=== PATIENT | male | born 1960 | race Caucasian/White ===

== ENCOUNTER → 2023-03-26 09:35 | Outpatient (BNVA) | payer OTHER, MEDICARE, SELFPAY | PROVIDERS: Visit Provider Family Medicine Adult Medicine | DX: R03.0 Elevated blood-pressure reading, without diagnosis of hypertension (principal); Z87.898 Personal history of other specified conditions; Z98.890 Other specified postprocedural states | CPT/HCPCS: 80053; 80061; 83036; 84443; 85025; G0103 ==

== ENCOUNTER → 2023-04-05 09:50 | Outpatient (BNVA) | payer OTHER, MEDICARE, SELFPAY | PROVIDERS: PCP Family Medicine Adult Medicine; Visit Provider Family Medicine Adult Medicine | DX: Z71.1 Person with feared health complaint in whom no diagnosis is made (principal) | CPT/HCPCS: 84403 ==

== ENCOUNTER → 2023-04-26 13:37 | Outpatient (BNVA) | payer MEDICARE, SELFPAY | PROVIDERS: PCP Family Medicine Adult Medicine; Referring Provider Family Medicine Adult Medicine; Visit Provider Internal Medicine | DX: R07.9 Chest pain, unspecified (principal); R00.1 Bradycardia, unspecified; I45.9 Conduction disorder, unspecified; Z98.890 Other specified postprocedural states; Z86.79 Personal history of other diseases of the circulatory system; Z87.891 Personal history of nicotine dependence | CPT/HCPCS: 93005; 99204 ==

== ENCOUNTER 2023-04-29 13:50 | Outpatient (CLI) | payer MEDICARE, SELFPAY ==
--- NOTE | 2023-04-29 14:30 | USCV_ITS ---
Kevin Montalvo Age: 63 Gender: M : 1960 Exam Date: 04/29/2023 13:46 Ordering Phys: Adair Hidalgo M.D ([email or web address]) Technologist: CHRISTINE [place]am [place] [facility] [place]: MVP REPAIR, EVAL FOR MR BP: 110 / 72 HR: 74 Rhythm: Sinus Technical Quality: Adequate MEASUREMENTS (Male / Female) Normal Values 2D ECHO LV Diastolic Diameter PLAX 5.2 cm 4.2 - 5.9 / 3.9 - 5.3 cm IVS Diastolic Thickness 1.3 cm 0.6 - 1.0 / 0.6 - 0.9 cm IVS Systolic Thickness 1.8 cm LVPW Diastolic Thickness 1.7 cm 0.6 - 1.0 / 0.6 - 0.9 cm LVPW Systolic Thickness 2.9 cm LVOT Diameter 2.0 cm LV Ejection Fraction 2D Teich 76.8 % LV Ejection Fraction MOD 2C 60.9 % LV Ejection Fraction 2C AL 0.0 % LA Diameter 3.7 cm RA Systolic Volume 4C AL 49.9 ml RA Systolic Volume 4C MOD 48.8 ml Aorta at Sinotubular Diameter 2.8 cm IVC Diameter 1.6 cm M-MODE LA Ao Ratio MM 1.3 AV Cusp Separation MM 1.9 cm DOPPLER AV Peak Velocity 203.8 cm/s LVOT Peak Velocity 151.0 cm/s AV Area Cont Eq vti 2.5 cm squared AV Area Cont Eq pk 2.3 cm squared MV Peak Velocity 179.0 cm/s MV Area PHT 2.0 cm squared Mitral E to A Ratio 1.4 TR Peak Velocity 232.0 cm/s TR Peak Gradient 21.5 mmHg TR Mean Velocity 183.0 cm/s TR Mean Gradient 14.4 mmHg TR Velocity Time Integral 66.6 cm TV Peak E Velocity 52.0 cm/s Right Atrial Pressure 3.0 mmHg Pulmonary Artery Systolic Pressu 24.5 mmHg PV Peak Velocity 125.0 cm/s RV Ejection Time 0.3 s FINDINGS Left Ventricle Left ventricle is normal in size. LV systolic function is normal with EF of 55 to 60%. No regional wall motion abnormalities are seen. Right Ventricle Normal in size and function Right Atrium Normal in size Left Atrium Dilated Mitral Valve Mitral valve annuloplasty ring seen. Mild mitral stenosis with mean gradient across mitral valve of 5.7 mmHg. Mild mitral regurgitation. Aortic Valve Structurally normal aortic valve. No significant aortic stenosis or regurgitation Tricuspid Valve Mild tricuspid regurgitation. Pulmonary artery systolic pressure is normal. Pulmonic Valve Mild pulmonic regurgitation Pericardium Normal Aorta Normal in size IVC Appears to be normal CONCLUSIONS LV systolic function is normal with EF of 55 to 60%. Left atrial dilation. Mitral valve annuloplasty ring is seen. Mild mitral stenosis. Mild mitral regurgitation. Mild tricuspid regurgitation Mild pulmonic regurgitation. No comparison studies are available Adair Hidalgo MD (Electronically Signed) Final Date: 04 May 2023 12:54 S
== END 2023-04-29 13:51 | disposition home or self-care (01) ==
LOC: RAD 13:50
PROVIDERS: PCP Family Medicine Adult Medicine; Visit Provider Internal Medicine
DX: I08.1 Rheumatic disorders of both mitral and tricuspid valves (principal)
CPT/HCPCS: 93306

== ENCOUNTER 2023-07-04 21:53 | Emergency (ER) | payer MEDICARE, SELFPAY ==
[2023-07-04 22:14] VITALS: BP 143/83; PULSE 86; TEMP 36.4; O2SAT 95; BMI 32.4
--- NOTE | 2023-07-04 22:58 | W.ED.SKABFB ---
HPI - Skin/Abscess/Foreign Bdy General: Chief complaint: Skin/Abscess/Foreign Body Stated complaint: maybe a bite on back of leg Time Seen by Provider: 07/04/23 22:46 History of Present Illness: 63-year-old male patient comes in today with complaints of a area of redness to his left inguinal area for the past 2 days. Patient reports mainly itching. Patient also reported some chills and tachycardia. Review of Systems General: Reports: 10 or more systems reviewed and unremarkable except in HPI and below PFSH ED PFSH: Medical History Former smoker Essential tremor Osteoarthritis Benign prostatic hyperplasia Concern about sexual dysfunction in male without diagnosis BMI 30.0-30.9,adult History of prediabetes Elevated blood pressure reading in office without diagnosis of hypertension History of rheumatic fever Seborrheic keratoses Hypertrophic condition of skin left foot Surgical History History of mitral valve repair Mitral valve prolapse with valve repair History of right knee joint replacement Family History Father Lung cancer Diabetes Mother Diabetes Hypertension Brother Diabetes Social History Smoking and tobacco/nicotine status: former use of tobacco/nicotine Quit status (tobacco/nicotine): has quit using Alcohol intake: current Alcohol intake frequency: few times a week Alcohol type: beer and hard liquor Substance/Drug Use: former Physical Exam Const: COMMON NORMALS: alert Neck/C-Spine: COMMON NORMALS: full ROM Resp: COMMON NORMALS: normal respiratory effort and clear to auscultation bilaterally AUSCULTATION: clear to auscultation bilaterally Cardio: COMMON NORMALS: regular rate and regular rhythm RATE: regular rate RHYTHM: regular rhythm Extremity: NARRATIVE EXTREMITY EXAM: Area of redness to the left inner upper thigh with a centralized punctate lesion. 3 cm area of induration surrounding lesion, 15 cm of erythema. Neuro: SENSORIUM/ORIENTATION: Yes alert Skin: NARRATIVE SKIN EXAM: Redness left upper thigh Course Vital Signs: Vital signs: Vital Signs Temperature 97.6 F 07/04/23 22:14 Pulse Rate 86 07/04/23 22:14 Blood Pressure 143/83 07/04/23 22:14 Pulse Oximetry 95 07/04/23 22:14 Oxygen Delivery Me thod Room Air 07/04/23 22:14 MDM - Skin/Abscess/Foreign Bdy Medicial Decision Making 63-year-old male patient comes in today for complaints of redness with itching to the left upper thigh. On exam we note a punctate lesion with surrounding erythema induration and redness. Patient appears nontoxic. Respirations are even lungs are clear to auscultation. Abdomen soft nontender. Differential diagnosis includes but not limited to cellulitis, localized reaction to insect bite, abscess. No sign of abscess is noted at this time. I believe at this time patient probably has an insect bite with surrounding cellulitis. Patient reports understanding of care plan need for follow-up or return to the ER. No radiology studies performed this visit Discharge Plan Discharge Patient Disposition: Home Clinical Impression: Insect bite Qualifiers: Encounter type: initial encounter Site of insect bite: thigh Laterality: left Qualified Code(s): S70.362A - Insect bite (nonvenomous), left thigh, initial encounter Cellulitis Qualifiers: Site of cellulitis: extremity Site of cellulitis of extremity: lower extremity Laterality: left Qualified Code(s): L03.116 - Cellulitis of left lower limb Condition: Stable Prescriptions: New doxycycline hyclate 100 mg capsule 100 mg PO BID 10 Days Qty: 20 0RF prednisone 20 mg tablet 20 mg PO BID 5 Days Qty: 10 0RF No Action clotrimazole-betamethasone 1-0.05 % cream 1 applic topical BID 14 Days Qty: 45 1RF Discharge Orders: Discharge ED (Routine); Ordered 07/04/23 Ordered By: Naun Burch Referrals: Shubham Szymanski MD [Primary Care Provider] - Discharge Diet: Usual diet Discharge Activity: Increase activity as tolerated Patient Instructions: Cellulitis (ED) Activity Restrictions/Additional Instructions: You may use Benadryl to help with itching. Take prednisone daily twice a day for 5 days. Take oral antibiotic for secondary cellulitis. Follow-up with primary care for further instructions. Return to ED for new concerns. Coding Level of Care Code ED Hepatology Physician for Darrick Regalado
[2023-07-04] MEDS: dexamethasone 10 mg/mL INJ IM (23:02)
[2023-07-04] MEDS: doxycycline 100 mg Tablet PO (23:02)
[2023-07-04 23:06] VITALS: BP 138/72; PULSE 82; RESP 18; O2SAT 97
== END 2023-07-04 23:07 | disposition home or self-care (01) ==
PROVIDERS: Emergency Provider Nurse Practitioner Family; PCP Family Medicine Adult Medicine
DX: S70.362A Insect bite (nonvenomous), left thigh, initial encounter (principal); W57.XXXA Bitten or stung by nonvenomous insect and other nonvenomous arthropods, initial encounter; L03.116 Cellulitis of left lower limb; Z87.891 Personal history of nicotine dependence
CPT/HCPCS: 96372; 99284; J1100

== ENCOUNTER → 2023-11-11 09:17 | Outpatient (BNVA) | payer MEDICARE, SELFPAY | PROVIDERS: PCP Family Medicine Adult Medicine; Visit Provider Nurse Practitioner Family | DX: I34.89 Other nonrheumatic mitral valve disorders (principal); Z98.890 Other specified postprocedural states | CPT/HCPCS: 99213 ==

== ENCOUNTER → 2024-02-21 13:46 | Outpatient (BNVA) | payer MEDICARE, SELFPAY | PROVIDERS: PCP Family Medicine Adult Medicine; Visit Provider Internal Medicine | DX: I48.91 Unspecified atrial fibrillation (principal); Z98.890 Other specified postprocedural states; Z87.891 Personal history of nicotine dependence; Z79.01 Long term (current) use of anticoagulants | CPT/HCPCS: 99214 ==

== ENCOUNTER → 2024-04-24 12:48 | Outpatient (BNVA) | payer MEDICARE, SELFPAY | PROVIDERS: PCP Family Medicine Adult Medicine; Visit Provider Internal Medicine | DX: I48.91 Unspecified atrial fibrillation (principal); Z98.890 Other specified postprocedural states; Z87.891 Personal history of nicotine dependence | CPT/HCPCS: 99214 ==

== ENCOUNTER → 2024-04-27 10:17 | Outpatient (BNVA) | payer MEDICARE, SELFPAY | PROVIDERS: PCP Family Medicine; Visit Provider Family Medicine | DX: G25.0 Essential tremor (principal); Z12.5 Encounter for screening for malignant neoplasm of prostate; I48.91 Unspecified atrial fibrillation; R73.03 Prediabetes | CPT/HCPCS: 80053; 80061; 83036; 84439; 84443; 85025 ==

== ENCOUNTER 2024-05-30 07:36 | Outpatient (CLI) | payer MEDICARE, SELFPAY ==
--- NOTE | 2024-05-30 07:45 | USCV_ITS ---
Kevin Montalvo Age: 64 Gender: M : 1960 Exam Date: 05/30/2024 07:47 Ordering Phys: Adair Hidalgo M.D ([email or web address]) Technologist: Exam Location: [facility] [place] Indication: mitral repair BP: 124 / 79 HR: 58 Rhythm: Sinus Technical Quality: Adequate MEASUREMENTS (Male / Female) Normal Values 2D ECHO LV Diastolic Diameter PLAX 5.2 cm 4.2 - 5.9 / 3.9 - 5.3 cm IVS Diastolic Thickness 1.3 cm 0.6 - 1.0 / 0.6 - 0.9 cm IVS Systolic Thickness 1.7 cm LVPW Diastolic Thickness 1.6 cm 0.6 - 1.0 / 0.6 - 0.9 cm LVPW Systolic Thickness 1.8 cm LVOT Diameter 2.2 cm LV Ejection Fraction 2D Teich 61.4 % LV Ejection Fraction MOD 4C 68.4 % LV Ejection Fraction MOD 2C 66.3 % LV Ejection Fraction 2C AL 66.8 % LA Diameter 4.7 cm RA Systolic Volume 4C AL 56.1 ml RA Systolic Volume 4C MOD 52.5 ml Aorta at Sinotubular Diameter 3.0 cm IVC Diameter 2.5 cm M-MODE LA Ao Ratio MM 1.7 AV Cusp Separation MM 2.7 cm DOPPLER AV Peak Velocity 163.0 cm/s LVOT Peak Velocity 114.0 cm/s AV Area Cont Eq vti 2.7 cm squared AV Area Cont Eq pk 2.6 cm squared MV Peak Velocity 204.0 cm/s MV Area PHT 2.1 cm squared Mitral E to A Ratio 2.2 TR Peak Velocity 165.0 cm/s TR Peak Gradient 10.9 mmHg TV Peak E Velocity 133.0 cm/s PV Peak Velocity 107.0 cm/s FINDINGS Left Ventricle Normal left ventricular size, systolic function and wall thickness, with no regional wall motion abnormalities. Left ventricular ejection fraction is estimated at 55 %. Grade II/IV diastolic dysfunction, moderately elevated filling pressures. Right Ventricle The right ventricle is normal in size and function. Right Atrium The right atrium is normal in size. Left Atrium Moderately increased left atrial size. Mitral Valve Mildly thickened mitral valve. No mitral valve stenosis. Moderate mitral valve regurgitation. Aortic Valve Mild aortic valve calcification. No aortic valve stenosis. Trace aortic valve regurgitation. Tricuspid Valve Structurally normal tricuspid valve without significant stenosis or regurgitation. Pulmonary artery systolic pressure is normal. Pulmonic Valve Trace pulmonary valve regurgitation. Pericardium Normal pericardium without effusion. Aorta Normal ascending aorta dimension. IVC The inferior vena cava appears normal. CONCLUSIONS Normal left ventricular size, systolic function and wall thickness, with no regional wall motion abnormalities. Left ventricular ejection fraction is estimated at 55 %. Grade II/IV diastolic dysfunction, moderately elevated filling pressures. Moderately increased left atrial size. Mildly thickened mitral valve. No mitral valve stenosis. Moderate mitral valve regurgitation. Mild aortic valve calcification. No aortic valve stenosis. Trace aortic valve regurgitation. Structurally normal tricuspid valve without significant stenosis or regurgitation. Pulmonary artery systolic pressure is normal. There is no pericardial effusion. Right atrial pressure is around 5 mm of mercury. Jonathan Crisostomo MD (Electronically Signed) Final Date: 15 June 2024 16:16 S
== END 2024-05-30 07:37 | disposition home or self-care (01) ==
PROVIDERS: PCP Family Medicine; Visit Provider Internal Medicine
DX: I48.91 Unspecified atrial fibrillation (principal); R07.9 Chest pain, unspecified; R06.02 Shortness of breath; R93.1 Abnormal findings on diagnostic imaging of heart and coronary circulation; I51.7 Cardiomegaly; I34.0 Nonrheumatic mitral (valve) insufficiency; I35.8 Other nonrheumatic aortic valve disorders
CPT/HCPCS: 93306

== ENCOUNTER → 2024-09-11 14:57 | Outpatient (BNVA) | payer MEDICARE, SELFPAY | PROVIDERS: PCP Family Medicine; Visit Provider Nurse Practitioner Family | DX: I48.20 Chronic atrial fibrillation, unspecified (principal); Z79.01 Long term (current) use of anticoagulants; E78.5 Hyperlipidemia, unspecified; Z98.890 Other specified postprocedural states; Z87.891 Personal history of nicotine dependence | CPT/HCPCS: 99213 ==

== ENCOUNTER 2024-11-09 06:58 | Outpatient (CLI) | payer MEDICARE, SELFPAY ==
--- NOTE | 2024-11-09 07:00 | CT_ITS ---
WS: [id number] LDCT LUNG CANCER SCREENING HISTORY: ex smoker; 22 pk yr; quit 2012 TECHNIQUE: Axial imaging performed from the apices to 1 cm below the costophrenic angles. Coronal and sagittal reformats are submitted with axial MIP series. All CT scans at [facility] use at least one of these dose optimization techniques: automated exposure control; mA and/or kV adjustment per patient size (includes targeted exams where dose is matched to clinical indication); or iterative reconstruction. DLP: 103.39 mGy.cm DIvol: Mean CTDIvol: 2.10 (mGy) COMPARISON: None available. Diagnostic quality: Satisfactory Lungs: Mild hyperexpansion of the lungs. Very mild pleural thickening along the minor fissure. No pulmonary mass or nodule. No pneumonia. No endobronchial lesions. Very minimal early changes of bronchiectasis RIGHT upper lobe. Heart: Mild cardiomegaly with no pericardial effusion.. Prior CABG. Other findings: Moderately enlarged pulmonary artery to 3.6 cm. Very slight atherosclerosis aorta. No mediastinal or hilar adenopathy. No adrenal mass. CT/CT lung screening [id number] IMPRESSION: LUNG-RADS: 1-Negative FOLLOW UP: 12 Month: Continue annual screening with LDCT OTHER FINDINGS (S MODIFIER): None.
== END 2024-11-09 06:59 | disposition home or self-care (01) ==
LOC: RAD 06:58
PROVIDERS: PCP Family Medicine; Visit Provider Family Medicine
DX: F17.211 Nicotine dependence, cigarettes, in remission (principal); I51.7 Cardiomegaly; Z95.1 Presence of aortocoronary bypass graft; R91.8 Other nonspecific abnormal finding of lung field
CPT/HCPCS: 71271

== ENCOUNTER 2024-12-16 18:00 | Emergency (ER) | payer MEDICARE, SELFPAY ==
--- OUTSIDE RECORDS SUMMARY | 2021-02-11 09:56 | XMS_ITS | Continuity of Care Document ---
Author Organization [facility] Address [address] [place] [id number] Phone Care Team Providers Care Nurse Examiner Name Role Phone JAYESH FLEMING MD Unavailable Unavailabl e Allergies, Adverse Reactions, Alerts Substance Reaction Status Criticality HYDROCODONE BITARTRATE Active No In formation Medications Medication Instructions Dosage Effective Dates (start - stop) Status Comments Tylenol 325 mg tablet take 3 tablet by o ral route every 8 hours as needed 975 MG - Active Flonase Allergy Relief 50 mcg/actuation nasal spray,suspension inhale 1 spray by intranasal route every day in each nostril 50 MCG - Active Procedures Procedure Date Rad Exam Knee; Three Views Postop F/u Visit Incld Global Therapeutic Exercise, Each 15 Minutes No Manual Therapy Techniques, Each 15 Min N Therap Activities 1-on-1 Ea Therapeutic Exercise, Each 15 Minutes No v Manual Therapy Techniques, Each 15 Min N Therap Activities 1-on-1 Ea Therapeutic Exercise, Each 15 Minutes Oc Manual Therapy Techniques, Each 15 Min O Therap Activities 1-on-1 Ea Postop F/u Visit Incld Global Therapeutic Exercise, Each 15 Minutes Oc Therap Activities 1-on-1 Ea Functional Outcome Assessment And Care P negrito Docume PT Evaluation Moderate Complexity Therapeutic Exercise, Each 15 Minutes Oc Arthroplsty Knee Condyl; Med & Anes- Open Knee Jt; Tot Knee R Form Completion Form Completion Copay/Prepayment Charge Arthroplsty Knee Condyl; Med & Offic/outpt E&m Estab Mod-hi 2 Arthrocentesis/aspir/inj; Tammy Betamethasone Acetate-na Phos/ Offic/outpt E&m Estab Mod-hi 2 Rad Exam Knee; Complt 4/more V Rad Exam Knee; Complt 4/more V Med Record Copy Admin N/C Brace/Orthosis Item Offic/outpt E&m New Mod-hi 45 0 Form Completion Mri Any Jt Lower Extrem Rad Exam Eye Detection Fb Offic/outpt E&m New Mod-hi 45 0 Advance Directives Directive Yes / No Effective Date File Name No Information Encounters Encounter Description Practice Location Reason(s) For Visit Diagnoses Date Provider Providers Copied on Encounter [facility], [address] [place] [address], [id number], tel:[phone] [facility] No Information 1 BERNADETTE MCCONNELL. [address] [place] [address], [id number], . tel:[phone] [facility], [address] [place] [address], [id number], tel:[phone] [facility] Status post total right knee replacement 1 KEVIN SÁNCHEZ. [address] [place] [address], [id number], . tel:[phone] Referring Provider: MODESTA Bhatt, [address] [place] [address], [id number]. tel:[phone] [facility], [address] [place] [address], [address] [place] [address], tel:[phone] [facility] Stiffness of right knee, not elsewhere classifiedMus carmine weakness (generalized) Other general symptoms and signs 1 Friedli Yandy. [address] [place] [address], [address] [place] [address], . tel:[phone] Referring Provider: MODESTA Bhatt, [address] [place] [address], [address] [place] [address]. tel:[phone] [facility], [address] [place] [address], [address] [place] [address], tel:[phone] [facility] Stiffness of right knee, not elsewhere classifiedMus carmine weakness (generalized) Other general symptoms and signs 1 Friedli Yandy. [address] [place] [address], [address] [place] [address], . tel:[phone] Referring Provider: MODESTA Bhatt, [address] [place] [address], [address] [place] [address]. tel:[phone] [facility], [address] [place] [address], [address] [place] [address], tel:[phone] [facility] Stiffness of right knee, not elsewhere classifiedMus carmine weakness (generalized) Other general symptoms and signs 1 Friedli Yandy. [address] [place] [address], [address] [place] [address], . tel:[phone] Referring Provider: MODESTA Bhatt, [address] [place] [address], [address] [place] [address]. tel:[phone] [facility], [address] [place] [address], [address] [place] [address], tel:[phone] [facility] Status post total right knee replacement 1 KEVIN SÁNCHEZ. [address] [place] [address], [facility], . tel:[phone] Referring Provider: MODESTA Bhatt, [address] [place] [address], [address] [place] [address]. tel:[phone] [facility], [address] [place] [address], [address] [place] [address], tel:[phone] [facility] Stiffness of right knee, not elsewhere classifiedMus carmine weakness (generalized) Other general symptoms and signs 1 Kasey Babin. [address] [place] [address], [address] [place] [address], . tel:[phone] Referring Provider: MODESTA Bhatt, [address] [place] [address], [address] [place] [address]. tel:[phone] [facility], [address] [place] [address], [address] [place] [address], tel:[phone] [facility] Body mass index (BMI) 33.0-33.9, adultStiffnes s of right knee, not elsewhere classifiedMus carmine weakness (generalized) Other general symptoms and signs 1 Rhea Kebede. [address] [place] [address], [address] [place] [address], [place]. tel:[phone] Referring Provider: MODESTA Bhatt, [address] [place] [address], [address] [place] [address]. tel:[phone] [facility], [address] [place] [address], [address] [place] [address], tel:[phone] [facility] No Information 1 TORSTEN BYERS. [address] [place] [address], [address] [place] [address], [place]. tel:[phone] [facility], [address] [place] [address], [address] [place] [address], tel:[phone] [facility] No Information 1 ARCHIE CROWLEY. [address] [place] [address], [address] [place] [address], . tel:[phone] Referring Provider: MODESTA Bhatt, [address] [place] [address], [address] [place] [address]. tel:[phone] [facility], [address] [place] [address], [id number], tel:[phone] [facility] No Information 1 TORSTEN BYERS. [address] [place] [address], [address] [place] [address], . tel:[phone] [facility], [address] [place] [address], [address] [place] [address], tel:[phone] [facility] No Information Oct- 1 TORSTEN BYERS. [address] [place] [address], [address] [place] [address], . tel:[phone] Copay/Prepay ment Charge [facility], [address] [place] [address], [address] [place] [address], tel:[phone] [facility] No Information Oct- 1 KEVIN SÁNCHEZ. [address] [place] [address], [facility], . tel:[phone] Offic/outpt E&m Estab Mod-hi 2 [facility], [address] [place] [address], [id number], tel:[phone] [facility] Body mass index (BMI) 30.0-30.9, adultPost-tra umatic osteoarthriti s of right kneePrimary osteoarthriti s of left kneePrimary osteoarthriti s of left knee Sep- 1 KIRSTY PARSON. [address] [place] [address], [address] [place] [address], [place]. tel:[phone] Offic/outpt E&m Estab Mod-hi 2 [facility], [address] [place] [address], [id number], [place] tel:[phone] [facility] Bilateral primary osteoarthriti s of kneeLateral collateral ligament deficiency of right knee Aug-3 1 GUILLE LUZ. [address] [place] [address], [address] [place] [address], [place]. tel:[phone] Referring Provider: Coy Rojo [facility] [address], [place], [address]. tel:[phone] [facility], [address] [place] [address], [address] [place] [address], tel:[phone] [facility] No Information 1 SMUCKER SUKH. [address] [place] [address], [address] [place] [address], . tel:[phone] [facility], [address] [place] [address], [address] [place] [address], tel:[phone] [facility] Acute medial meniscal injury of right knee, initial encounterInju ry of posterolatera l corner of right knee, initial encounterPeri pheral tear of medial meniscus of right knee as current injury, initial encounterPrim femi osteoarthriti s of right kneeRupture of posterior cruciate ligament of right knee, initial encounter 0 SMUCKER SUKH. [address] [place] [address], [address] [place] [address], . tel:[phone] [facility], [address] [place] [address], [address] [place] [address], tel:[phone] [facility] No Information 0 SMUCKER SUKH. [address] [place] [address], [address] [place] [address], . tel:[phone] Offic/outpt E&m New Mod-hi 45 [facility], [address] [place] [address], [address] [place] [address], tel:[phone] [facility] Body mass index (BMI) 30.0-30.9, adultInjury of posterolatera l corner of right knee, initial encounterRupt ure of posterior cruciate ligament of right knee, initial encounterTear of lateral collateral ligament of right knee, initial encounterPrim femi osteoarthriti s of right kneePeriphera l tear of medial meniscus of right knee as current injury, initial encounterAcut e medial meniscal injury of right knee, initial encounter 0 SMUCKER SUKH. [address] [place] [address], [address] [place] [address], [place]. tel:[phone] Referring Provider: HELLEN Alba, [address] [place] [address], [id number]. tel:[phone] [facility], [address] [place] [address], [address] [place] [address], tel:[phone] [facility] No Information 0 SMUCKER SUKH. [address] [place] [address], [address] [place] [address], . tel:[phone] [facility], [address] [place] [address], [address] [place] [address], tel:[phone] [facility] No Information 0 LEESA HELLEN. [address] [place] [address], [address] [place] [address], . tel:[phone] Referring Provider: HELLEN Alba, [address] [place] [address], [address] [place] [address]. tel:[phone] [facility], [address] [place] [address], [address] [place] [address], tel:[phone] [facility] No Information 0 LEESA HELLEN. [address] [place] [address], [address] [place] [address], . tel:[phone] Referring Provider: HELLEN Alba, [address] [place] [address], [address] [place] [address]. tel:[phone] Offic/outpt E&m New Mod-hi 45 [facility], [address] [place] [address], [address] [place] [address], tel:[phone] [facility] Body mass index (BMI) 29.0-29.9, adultRupture of posterior cruciate ligament of right knee, initial encounterInju ry of posterolatera l corner of right knee, initial encounterTear of lateral collateral ligament of right knee, initial encounter Jul- 0 LEESA HELLEN. [address] [place] [address], [address] [place] [address], . tel:[phone] Family History Family Member Type Diagnosis Age At Onset Mother Problem Family history of hypertensi on Mother Problem Family history of alzheimer' s disease Mother Problem Diabetes mellitus Father Problem Family history of malignant neoplasm of lung Father Problem Family history of hypertensi on Payers Payer name Insurance type Covered constitution party ID Authoredithrochelle franco(s) Anais MOLINA [id number] Social History Type Description Quantity Date Captured Comments Sex Male Smoking Status No Information Chief Complaint And Reason For Visit No Information Reason For Referral Reason For Referral No Information Plan Of Treatment Date Type Action Status Goal Dietary manageme nt education, guidance, and counseling completed Goal Dietary manageme nt education, guidance, and counseling completed Goal Prescribed diet education co mpleted Goal Dietary manageme nt education, guidance, and counseling completed Future Order: Lab Order Knee 3 V W Right ([id number]), Sent on: Sent Future Order: Lab Order Knee 4 V W Arthritis vw Left ([id number]), Sent on: Sent Future Order: Lab Order Knee 4 V W Arthritis vw Right ([id number]), Sent on: Sent Future Order: Lab Order Orbits ([id number]), S ent on: Sent History Of Present Illness Encounter Date Complaint History Of Prese nt Illness No Information Functional Status Date Functional Assessmen t No Information Instructions Date Instruction Additional Infor reba Giving encouragement to exercise Related to Body mass index [BMI] 33.0-33.9, adult Dietary management e ducation, guidance, and counseling Related to Body mass index [BMI] 33.0-33.9, adult Giving encouragement to exercise Related to Body mass index [BMI]30.0-30.9, adult Dietary management e ducation, guidance, and counseling Related to Body mass index [BMI]30.0-30.9, adult Prescribed activity/exercise edu cation Related to Body mass index (BMI) 30.0-30.9, adult Prescribed diet education Relate d to Body mass index (BMI) 30.0-30.9, adult Giving encouragement to exercise Related to Body mass index (BMI) 29.0-29.9, adult Dietary management e ducation, guidance, and counseling Related to Body mass index (BMI) 29.0-29.9, adult Assessments Type Assessment Date No Information Patient Care Teams Name Effective Dates (start - stop) Status Members No Information
--- OUTSIDE RECORDS SUMMARY | 2024-12-15 05:30 | XMS_ITS ---
Author Organization [facility] Address [address] [place] [address] Care Team Providers Care Toll Relief Operator Name Role Phone Orlando Brown Unavailable [phone] REASON FOR VISIT LT KNEE Problems Problem Type SNOMED Code ICD Code Onset Dates Problem Status W/U Status Risk Notes Problem Artificial knee joint present (571875662982) Status post total knee replacement, right (Z96.651) Active confirmed Problem Osteoarthritis of knee (960400394) Primary osteoarthritis of left knee (M17.12) Active confirmed Encounters Encounter Location Date Provider Diagnosis [facility] [address] [place] [address] 12/15/2024 Orlando Brown Status post total kn ee replacement, right Z96.651 and Primary osteoarthritis of left knee M17.12 Assessments Encounter Date Diagnosis (ICD Code) Assessment Notes Treatment Notes Treatment Clinical Notes Section Notes 12/15/2024 Status post total knee replacement, right (ICD-10 - Z96.651) Visual right knee is quite well for him. He is satisfied with this. His x-rays look satisfactory as well. 12/15/2024 Primary osteoarthritis of left knee (ICD-10 - M17.12) This individual has significant degenerative arthritis of his left knee which is a multi year problem for him. He has a fixed varus deformity and a flexion contracture as well. I have gone over all of this with him. I think is reasonable to consider proceeding with total knee arthroplasty on the left side. Risk of surgery such as infection, bleeding, fracture continued pain are discussed and accepted. This patient has personal risk factor of atrial fibrillation and is currently taking Eliquis 5 mg p.o. twice daily I told him we will need to get him off of this prior to surgery and then after surgery for at least 2 weeks I will probably have him on Eliquis 2.5 mg p.o. twice daily before we stepped him back up to 5 mg twice daily. Proposed procedure: Left total knee arthroplasty: Ata 2 bicondylar stabilized with cementless tibia possible; adductor canal block; robotic assistance Plan Of Treatment Treatment Notes Assessment Notes Status post total knee replacement, righ t Visual right knee is quite well for him. He is satisfied with this. His x-rays look satisfactory as well. Primary osteoarthritis of left knee This individual has significant degenerative arthritis of his left knee which is a multi year problem for him. He has a fixed varus deformity and a flexion contracture as well. I have gone over all of this with him. I think is reasonable to consider proceeding with total knee arthroplasty on the left side. Risk of surgery such as infection, bleeding, fracture continued pain are discussed and accepted. This patient has personal risk factor of atrial fibrillation and is currently taking Eliquis 5 mg p.o. twice daily I told him we will need to get him off of this prior to surgery and then after surgery for at least 2 weeks I will probably have him on Eliquis 2.5 mg p.o. twice daily before we stepped him back up to 5 mg twice daily. Proposed procedure: Left total knee arthroplasty: Ata 2 bicondylar stabilized with cementless tibia possible; adductor canal block; robotic assistance History and Physical Notes * HPI (History of Present Illness) Category Sub-Category Detail Notes Category Not es Provider Note Individual is seen today for evaluation of significant pain and soreness of his left knee. He had a right total knee arthroplasty done 5 years ago and it is doing well for him. In fact, at the time he saw somebody about his right knee the doctor thought he was there for his left knee because of the significant arthritis issue of the left knee. Patient notes constant pain and soreness with his left knee. Examination Category Sub-Category Detail Notes Category Not es General Examination GENERAL APPEARANCE: alert, w ell hydrated, in no distress, converses well HEAD: normocephalic, atrau matic EYES: extraocular movement intact (EOMI), PERRL; normal conjunctiva EARS: BOTH EARS, tympanic membrane intact, clear EXTREMITIES: Antalgic gait to the left. Balance is good. PERIPHERAL PULSES: Pulses are present. Trace lymphedema, negative Marialuisa bilateral. MUSCULOSKELETAL: Knee: Well-healed mi dline scar. No effusion. Active knee extension is 0 degrees and flexes today to about 115 to 20 degrees. Collateral balance so some laxity laterally probably +1. He has 0 and balance medially. Quadriceps are 5, hamstrings are 5. No effusion. Right hip and ankle motion are normal. Left knee: Left knee has a varus deformity. Extension probably -10 degrees I would say flexing to about 110 to 15 degrees. Crepitus is noted medial joint. Quadriceps are 5 hamstrings are 5. Skin shows no lesions or ulcers. Hip ankle motion normal. Plain X-ray Imaging Studies KNEE X-RAYS: Both knees: 3 views of the right knee show cemented cruciate retaining right total knee arthroplasty without problem. 3 views of the left knee show severe osteoarthritis change of the left knee with a fixed varus deformity osteophyte formation is noted of the medial tibial plateau and femoral condyle. Significant patellofemoral arthritis is noted also. Progress Notes * Vadim TREVINOmaryDOB:1960 (64 yo M)Acc No.[id number]:12/15/2024 Progress Notes Patient: Kevin Jara Provider: Lonnie Brown M.D. 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 He had a right total knee arthroplasty done 5 years ago and it is doing well for him. In fact, at the time he saw somebody about his right knee the doctor thought he was there for his left knee because of the significant arthritis issue of the left knee. Patient notes constant pain and soreness with his left knee. Objective: * Examination: G eneral Examination: GENERAL APPEARANCE: a lert, well hydrated, in no distress, converses well. HEAD: n ormocephalic, atraumatic. EYES: e xtraocular movement intact (EOMI), PERRL; normal conjunctiva. EARS: B OTH EARS, tympanic membrane intact, clear. MUSCULOSKELETAL: K nee: Well-healed midline scar. No effusion. Active knee extension is 0 degrees and flexes today to about 115 to 20 degrees. Collateral balance so some laxity laterally probably +1. He has 0 and balance medially. Quadriceps are 5, hamstrings are 5. No effusion. Right hip and ankle motion are normal. Left knee: Left knee has a varus deformity. Extension probably -10 degrees I would say flexing to about 110 to 15 degrees. Crepitus is noted medial joint. Quadriceps are 5 hamstrings are 5. Skin shows no lesions or ulcers. Hip ankle motion normal.. EXTREMITIES: A ntalgic gait to the left. Balance is good. PERIPHERAL PULSES: P ulses are present. Trace lymphedema, negative Marialuisa bilateral. P eris X-ray Imaging Studies: KNEE X-RAYS: B oth knees: 3 views of the right knee show cemented cruciate retaining right total knee arthroplasty without problem. 3 views of the left knee show severe osteoarthritis change of the left knee with a fixed varus deformity osteophyte formation is noted of the medial tibial plateau and femoral condyle. Significant patellofemoral arthritis is noted also.. ? Assessment: * Assessment: 1. P rimary osteoarthritis of left knee - M17.12 (Primary) 2 . S tatus post total knee replacement, right - Z96.651 Plan: * Treatment: 2. S tatus post total knee replacement, right Notes: Visual right knee is quite well for him. He is satisfied with this. His x-rays look satisfactory as well. Billing Information: * Procedure Codes: * Electronic signature of Maurilio Brown MD on 12/16/2024 at 06:04 PM CDT Sign off status: Pending * Provider: Lonnie Brown M.D. Date: Generated for Rashmi emery/Gayathri/Dinoitting on: 06:04 PM CDT
[2024-12-16 18:05] VITALS: BP 150/77; PULSE 91; RESP 16; TEMP 36.4; O2SAT 97; BMI 32.3
--- OUTSIDE RECORDS SUMMARY | 2024-12-16 18:05 | XMS_ITS | Patient Health Record ---
Author Organization [facility] Address [address] [place] [address] Care Team Providers Care Lines Tender Name Role Phone Fanta CHRISTIAN, Ze Primary Care Provider Unavailabl e Reason For Referral No Information Plan Of Treatment No Information Insurance Providers Payer Name Payer Address Payer Phone Subscriber Number Group Number Insured Name Patient Relationship to Insured Coverage Start Date Coverage End Date BCBS [address] [place] [address] [id number] Kevin Farrell Self - patient is the insured 2
--- OUTSIDE RECORDS SUMMARY | 2024-12-16 18:05 | XMS_ITS | Patient Health Record ---
Author Organization [facility] Address [address] [place] [address] Care Team Providers Care Customer Support Coordinator Name Role Phone Orlando Brown Unavailable [phone] Reason For Referral No Information Problems Problem Type SNOMED Code ICD Code Onset Dates Problem Status W/U Status Risk Notes Problem Osteoarthritis of knee (152548935) Primary osteoarthritis of left knee (M17.12) Active confirmed Problem Artificial knee joint present (059129293500) Status post total knee replacement, right (Z96.651) Active confirmed Encounters Encounter Location Date Provider Diagnosis [facility] [address] [place] [address] 12/15/2024 Orlando Brown Status post total kn ee replacement, right Z96.651 and Primary osteoarthritis of left knee M17.12 Assessments Encounter Date Diagnosis (ICD Code) Assessment Notes Treatment Notes Treatment Clinical Notes Section Notes 12/15/2024 Primary osteoarthritis of left knee (ICD-10 [...] daily. Proposed procedure: Left total knee arthroplasty: Journey 2 bicondylar stabilized with cementless tibia possible; adductor canal block; robotic assistance 12/15/2024 Status post total knee replacement, right (ICD-10 - Z96.651) Visual right knee is quite well for him. He is satisfied with this. His x-rays look satisfactory as well. Plan Of Treatment No Information Insurance Providers Payer Name Payer Address Payer Phone Subscriber Number Group Number Insured Name Patient Relationship to Insured Coverage Start Date Coverage End Date [employer] Replacement [address] [address] [place] [address] [id number] Kevin Farrell Self - patient is the insured
--- NOTE | 2024-12-16 18:21 | W.ED.EYEPROB ---
HPI - Eye Problem General: Chief complaint: Eye Problems Stated complaint: Something in R eye Time Seen by Provider: 12/16/24 18:15 Source: patient Mode of arrival: ambulatory Limitations: no limitations History of Present Illness: 64-year-old male states that he believes he has something in his right eye. States he was working underneath his RV 2 days ago was been having right eye pain along with erythema since then. Denies any changes in his vision rates the pain a 6 out of 10. Related Data Previous Rx's ?Medication ?Instructions ?Recorded apixaban 5 mg tablet (Eliquis) 5 mg PO BID #180 tabs 03/25/24 rosuvastatin 10 mg tablet 10 mg PO DAILY cholesterol #90 tabs 10/05/24 diltiazem HCl 360 mg 360 mg PO DAILY #90 caps 11/10/24 capsule,extended release 24 hr (Cardizem CD) erythromycin 5 mg/gram (0.5 %) eye 1 applic ophthalmic (eye) Q6H #3.5 12/16/24 ointment (3.5 gram tube) grams erythromycin 5 mg/gram (0.5 %) eye 1 applic ophthalmic (eye) QID #3.5 12/16/24 ointment (3.5 gram tube) grams Allergies Allergy/AdvReac Type Severity Reaction Status Date / Time No Known Allergies Allergy Verified 10/05/24 14:54 Review of Systems Eyes: Reports: eye redness [facility] ED PFSH: Medical History Primary osteoarthritis of left knee Hypercholesterolemia Screening for lung cancer Chronic atrial fibrillation Prediabetes Nicotine dependence, cigarettes, in remission Essential tremor Osteoarthritis Benign prostatic hyperplasia History of rheumatic fever Seborrheic keratoses Surgical History Hx of colonoscopy age 57--out of state--need f/u 10yrs History of mitral valve repair Mitral valve prolapse with valve repair History of right knee joint replacement Family History Father Lung cancer Diabetes Mother Diabetes Hypertension Brother Diabetes Hyperlipidemia Social History Smoking and tobacco/nicotine status: former use of tobacco/nicotine Quit status (tobacco/nicotine): has quit using Year quit tobacco: 2012 Former quit date comment: 1ppd X 22yrs Alcohol intake: current Alcohol intake frequency: few times a week Alcohol type: beer, wine and hard liquor Household members: spouse and other Details: daughter Marital status: Number of children: 3 Highest education level completed: 10th Grade Current occupational status: employed 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 Physical Exam Const: COMMON NORMALS: no acute distress HENMT: COMMON NORMALS: normocephalic and atraumatic HEAD & SCALP: normocephalic and atraumatic Eye: OTHER: Small piece of metal noted to right anterior cornea Resp: COMMON NORMALS: normal respiratory effort Cardio: COMMON NORMALS: regular rate RATE: regular rate Extremity: COMMON NORMALS: normal to inspection Procedures FB Removal Eye Time Out performed: Yes Location: eye (R) Topical anesthetic used: tetracaine Foreign body: metal Evidence of corneal penetration: No Technique: electric shelly Procedure performed under: direct visualization with magnification Post-procedure medication: ophthalmic antibiotic Patient tolerated procedure: well Complications: residual rust ring Course Vital Signs: Vital signs: Vital Signs Temperature 97.5 F L 12/16/24 18:05 Pulse Rate 91 12/16/24 18:05 Respiratory Rate 16 12/16/24 18:05 Blood Pressure 150/77 12/16/24 18:05 Pulse Oximetry 97 12/16/24 18:05 Oxygen Delivery Me thod Room Air 12/16/24 18:05 MDM - Eye Problem Medical Decision Making Patient presents for foreign body to his right eye. Did visualize a piece of metal was able to get the piece of metal out with an electric bur he does still have a small amount of rust ring left. He has no signs of corneal perforation we will place him erythromycin ointment informed he needs to follow-up with television news video editor [facility] ([place], [place]) in 2 to 4 days return if worsening he understands agrees plan Medical Records I reviewed the patient's medical records. No radiology studies performed this visit Discharge Plan Discharge Patient Disposition: Home Clinical Impression: Foreign body of right eye Qualifiers: Encounter type: initial encounter Qualified Code(s): T15.91XA - Foreign body on external eye, part unspecified, right eye, initial encounter Condition: Stable Prescriptions: New erythromycin 5 mg/gram (0.5 %) ointment 1 applic ophthalmic (eye) Q6H Qty: 3.5 0RF erythromycin 5 mg/gram (0.5 %) ointment 1 applic ophthalmic (eye) QID Qty: 3.5 0RF No Action rosuvastatin 10 mg tablet 10 mg PO DAILY Qty: 90 3RF Eliquis 5 mg tablet 5 mg PO BID Qty: 180 3RF diltiazem HCl [Cardizem CD] 360 mg capsule,extended release 24hr 360 mg PO DAILY Qty: 90 3RF Discharge Orders: Discharge ED (Routine); Ordered 12/16/24 Ordered By: Jessica Nuno Referrals: [facility] [Outside] - 4-7 days Jessica Pastor MD [Primary Care Provider, Family Practice] - 4-7 days Discharge Diet: Advance as tolerated Discharge Activity: Resume usual activity Patient Instructions: Eye Foreign Body (ED) Print Language: Emirati Coding Level of Care Code ED Zoo Caretaker for Darrick Regalado
[2024-12-16] MEDS: tetracaine 0.5% Op Soln 4 mL Btl 1 DROP EYE-RIGHT (18:32)
== END 2024-12-16 18:37 | disposition home or self-care (01) ==
PROVIDERS: Emergency Provider Emergency Medicine; PCP Family Medicine
DX: T15.91XA Foreign body on external eye, part unspecified, right eye, initial encounter (principal); W44.E9XA Other non-magnetic metal objects entering into or through a natural orifice, initial encounter; Z79.01 Long term (current) use of anticoagulants; Z87.891 Personal history of nicotine dependence
CPT/HCPCS: 99283; J9999